=== PATIENT | female | born 1995 | race African-American/Black ===

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

== ENCOUNTER 2017-01-08 22:10 | Emergency (ER) | payer MEDICAID, OTHER ==
[~2017-01-08] VITALS: Ht 165.1 cm; Wt 95.5 kg
[~2017-01-08 22:10] MED LIST changes: +BACT800T5 PO; -ERYTOIN10 RIGHT EYE; -OSEL75 PO; -PERC5TAB12 PO
[2017-01-08 22:12] VITALS: BP 135/80; PULSE 67; RESP 16; TEMP 98.7; O2SAT 100
[2017-01-08] MEDS ORDERED: ELVITAB PO (23:34)
[2017-01-08] MEDS ORDERED: MULTTAB67 PO (23:34)
[2017-01-08] MEDS ORDERED: SODIUM CHLORIDE 0.9% FLUSH 10 ML FLUSH IV FLUSH PRN (23:45)
--- NOTE | 2017-01-08 23:47 | PD ---
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 Patient states she's been taking antiretrovirals and following up with her infectious disease officer as scheduled. She thinks that she might be currently. States that she did pass some blood and what appears to be some products of conception from her vagina earlier today. Currently she states that she feels fairly well. States never been before. Does not know her blood type. PFSH Past Medical History Autoimmune Disease: Yes (HIV) Cancer: No Cardiovascular Problems: No Diabetes: No Patient Takes Glucophage: No Diminished Hearing: No Endocrine: No Gastrointestinal Disorders: No Genitourinary: No Hepatitis: No Hiatal Hernia: No Hypertension: No Immune Disorder: No Musculoskeletal: Yes (S/P RIGHT ANKLE TRAUMA) Neurologic: No Psychiatric: No Reproductive: No Respiratory: No Immunizations Current: Yes Thyroid Disease: No Tetanus Vaccination: < 5 Years Influenza Vaccination: Yes ?: Unknown LMP: 11/26/16 Past Surgical History AICD: No Body Medical Devices: NONE Joint Replacement: No Pacemaker: No Other Surgery: No Social History Alcohol Use: No (DENIES) Tobacco Use: No (DENIES) Substance Use: No (DENIES) Allergies-Medications (Allergen,Severity, Reaction): Coded Allergies: No Known Allergies (Unverified , 01/08/17) Reported Meds & Prescriptions Reported Meds & Active Scripts Active Macrobid (Nitrofurantoin Monoh/Nitrofur Macro) 100 Mg Cap 100 Mg PO BID Reported Multiple Vitamin 1 Tab 1 Tab PO DAILY Stribild (Jmmhtdepwzln-Idrrzmxtff-Jivhpmnbpijh-Tenofvir) [id number] Mg Tab 1 Tab PO DAILY With food Review of Systems Except as stated in HPI: all other systems reviewed are Neg Physical Exam Narrative GENERAL: Well-developed well-nourished no obvious distress. SKIN: Focused skin assessment warm/dry. HEAD: Atraumatic. Normocephalic. EYES: Pupils equal and round. No scleral icterus. No injection or drainage. ENT: No nasal bleeding or discharge. Mucous membranes pink and moist. NECK: Trachea midline. No JVD. CARDIOVASCULAR: Regular rate and rhythm. No murmur appreciated. RESPIRATORY: No accessory muscle use. Clear to auscultation. Breath sounds equal bilaterally. GASTROINTESTINAL: Abdomen soft, non-tender, nondistended. Hepatic and splenic margins not palpable. GENITOURINARY: Small amount of blood in the vaginal vault, the patient's having some passage of membranous tissue from the cervix. No discharge no lesions seen. MUSCULOSKELETAL: No obvious deformities. No clubbing. No cyanosis. No edema. NEUROLOGICAL: Awake and alert. No obvious cranial nerve deficits. Motor grossly within normal limits. Normal speech. PSYCHIATRIC: Appropriate mood and affect; insight and judgment normal. Data Data Last Documented VS Vital Signs Date Time Temp Pulse Resp B/P (MAP) Pulse Ox O2 Delivery O2 Flow Rate FiO2 01/09/17 03:36 01/09/17 01:28 65 18 100 Room Air 01/08/17 22:12 98.7 Orders Orders Urinalysis - C+S If Indicated (01/08/17 23:23) Ed Urine Pregnancytest Poc (01/08/17 23:23) Basic Metabolic Panel (Bmp) (01/08/17 23:45) Beta Hcg (Quant/Titer) (01/08/17 23:45) Complete Blood Count With Diff (01/08/17 23:45) Iv Access Insert/Monitor (01/08/17 23:45) Ecg Monitoring (01/08/17 23:45) Oximetry (01/08/17 23:45) Sodium Chloride 0.9% Flush (Ns Flush) (01/08/17 23:45) Abo/Rh Blood Type (01/08/17 23:45) Urine Culture (01/09/17 01:40) Labs Laboratory Tests Test 01/09/17 00:23 01/09/17 01:40 01/09/17 02:40 White Blood Count 7.0 TH/MM3 Red Blood Count 4.10 MIL/MM3 Hemoglobin 12.1 GM/DL Hematocrit 36.8 % Mean Corpuscular Volume 89.9 FL Mean Corpuscular Hemoglobin 29.5 PG Mean Corpuscular Hemoglobin Concent 32.8 % Red Cell Distribution Width 13.6 % Platelet Count 230 TH/MM3 Mean Platelet Volume 8.3 FL Neutrophils (%) (Auto) 56.2 % Lymphocytes (%) (Auto) 32.6 % Monocytes (%) (Auto) 10.3 % Eosinophils (%) (Auto) 0.6 % Basophils (%) (Auto) 0.3 % Neutrophils # (Auto) 4.0 TH/MM3 Lymphocytes # (Auto) 2.3 TH/MM3 Monocytes # (Auto) 0.7 TH/MM3 Eosinophils # (Auto) 0.0 TH/MM3 Basophils # (Auto) 0.0 TH/MM3 CBC Comment DIFF FINAL Differential Comment Urine Color YELLOW Urine Turbidity HAZY Urine pH 7.0 Urine Specific [place] 1.023 Urine Protein TRACE mg/dL Urine Glucose (UA) NEG mg/dL Urine Ketones NEG mg/dL Urine Occult Blood LARGE Urine Nitrite NEG Urine Bilirubin NEG Urine Urobilinogen LESS THAN 2.0 MG/DL Urine Leukocyte Esterase LARGE Urine RBC /hpf Urine WBC 39 /hpf Urine Squamous Epithelial Cells 2 /hpf Urine Transitional Epithelial Cells <1 /hpf Urine Renal Epithelial Cells 1 /hpf Urine Mucus FEW /lpf Microscopic Urinalysis Comment CULTURE INDICATED Blood Urea Nitrogen 16 MG/DL Creatinine 0.78 MG/DL Random Glucose 75 MG/DL Calcium Level 8.5 MG/DL Sodium Level 138 MEQ/L Potassium Level 5.0 MEQ/L Chloride Level 105 MEQ/L Carbon Dioxide Level 29.1 MEQ/L Anion Gap 4 MEQ/L Estimat Glomerular Filtration Rate 115 ML/MIN Human Chorionic Gonadotropin, Quant 134 MIU/ML MDM Medical Decision Making Medical Screen Exam Complete: Yes Emergency Medical Condition: Yes Differential Diagnosis Miscarriage, Rh mismatch, early , vaginal bleeding and . Narrative Course Patient roomed in emergency department, given her symptoms, highly suspect that the patient is completed a spontaneous . Absent Quant and Rh, have asked my nurse practitioner Roya to follow-up these results program as necessary and the patient can return in 48 hours if needed for repeat Quant. At this time I do not see indication for ultrasound. If her hCG is high need to consider doing an ultrasound. Diagnosis Primary Impression: Spontaneous miscarriage Scripts Nitrofurantoin Monohydrate Macrocrystals (Macrobid) 100 Mg Cap 100 MG PO BID for Infection, #14 CAP 0 Refills Prov: Ashley Garzashannan PAULA 01/09/17 Disposition: 01 DISCHARGE HOME Condition: Stable Bull Monzon MD Jan 08, 2017 23:47
[2017-01-09 01:17] LABS: BASOPHIL % 0.3 % (0.0-2.0); EOSINOPHIL % 0.6 % (0.0-4.0); HEMATOCRIT 36.8 % (35.0-46.0); HEMO FLAGS DIFF FINAL; LYMPH % 32.6 % (9.0-44.0); LYMPHOCYTE # 2.3 TH/MM3 (1.0-4.8); MEAN CELL VOLUME 89.9 FL (80.0-100.0); MEAN CORPUSCULAR HEMOGLOBIN 29.5 PG (27.0-34.0); MEAN CORPUSCULAR HGB CONC 32.8 % (32.0-36.0); MONO % 10.3 % (0.0-8.0); NEUT % 56.2 % (16.0-70.0); PLATELET COUNT 230 TH/MM3 (150-450); RED CELL DISTRIBUTION WIDTH 13.6 % (11.6-17.2)
[2017-01-09 01:28] VITALS: BP 134/87; PULSE 65; RESP 18; O2SAT 100
[2017-01-09 02:11] LABS: BLOOD, URINE LARGE (NEG); GLUCOSE,URINE NEG (NEG); KETONE, URINE NEG (NEG); MUCUS URINE FEW /lpf (OCC); NITRITE,URINE NEG (NEG); RENAL EPITHELIAL CELLS 1 /hpf; SQUAMOUS EPITHELIAL CELL URINE 2 /hpf (0-5); TRANSITIONAL EPI CELLS, URINE <1 /hpf; URINE COLOR YELLOW (YELLW/STRAW)
[2017-01-09 02:14] LABS: COMMENT (UR) CULTURE INDICATED; CULTURE IF INDICATED CULTURE INDICATED
[2017-01-09] MEDS ORDERED: MACR100C2 PO (02:30)
--- NOTE | 2017-01-09 02:30 | PD ---
Physical Exam Date Seen by Provider: Jan 09, 2017 Time Seen by Provider: 02:24 Narrative For full history and physical examination please see previous provider's note. I assumed care of this patient from my attending physician at the end of his shift. At that time we were waiting on the results of her hCG level, urinalysis and chemistry. Data Data Last Documented VS Vital Signs Date Time Temp Pulse Resp B/P (MAP) Pulse Ox O2 Delivery O2 Flow Rate FiO2 01/09/17 01:28 65 18 134/87 (103) 100 Room Air 01/08/17 22:12 98.7 Orders Orders Urinalysis - C+S If Indicated (01/08/17 23:23) Ed Urine Pregnancytest Poc (01/08/17 23:23) Basic Metabolic Panel (Bmp) (01/08/17 23:45) Beta Hcg (Quant/Titer) (01/08/17 23:45) Complete Blood Count With Diff (01/08/17 23:45) Iv Access Insert/Monitor (01/08/17 23:45) Ecg Monitoring (01/08/17 23:45) Oximetry (01/08/17 23:45) Sodium Chloride 0.9% Flush (Ns Flush) (01/08/17 23:45) Abo/Rh Blood Type (01/08/17 23:45) Urine Culture (01/09/17 01:40) Labs Laboratory Tests Test 01/09/17 00:23 01/09/17 01:40 White Blood Count 7.0 TH/MM3 Red Blood Count 4.10 MIL/MM3 Hemoglobin 12.1 GM/DL Hematocrit 36.8 % Mean Corpuscular Volume 89.9 FL Mean Corpuscular Hemoglobin 29.5 PG Mean Corpuscular Hemoglobin Concent 32.8 % Red Cell Distribution Width 13.6 % Platelet Count 230 TH/MM3 Mean Platelet Volume 8.3 FL Neutrophils (%) (Auto) 56.2 % Lymphocytes (%) (Auto) 32.6 % Monocytes (%) (Auto) 10.3 % Eosinophils (%) (Auto) 0.6 % Basophils (%) (Auto) 0.3 % Neutrophils # (Auto) 4.0 TH/MM3 Lymphocytes # (Auto) 2.3 TH/MM3 Monocytes # (Auto) 0.7 TH/MM3 Eosinophils # (Auto) 0.0 TH/MM3 Basophils # (Auto) 0.0 TH/MM3 CBC Comment DIFF FINAL Differential Comment Human Chorionic Gonadotropin, Quant 134 MIU/ML Urine Color YELLOW Urine Turbidity HAZY Urine pH 7.0 Urine Specific [place] 1.023 Urine Protein TRACE mg/dL Urine Glucose (UA) NEG mg/dL Urine Ketones NEG mg/dL Urine Occult Blood LARGE Urine Nitrite NEG Urine Bilirubin NEG Urine Urobilinogen LESS THAN 2.0 MG/DL Urine Leukocyte Esterase LARGE Urine RBC /hpf Urine WBC 39 /hpf Urine Squamous Epithelial Cells 2 /hpf Urine Transitional Epithelial Cells <1 /hpf Urine Renal Epithelial Cells 1 /hpf Urine Mucus FEW /lpf Microscopic Urinalysis Comment CULTURE INDICATED MDM Medical Record Reviewed: Yes Supervised Visit with FABBY: Yes Interpretation(s) Laboratory Tests Test 01/09/17 00:23 01/09/17 01:40 White Blood Count 7.0 TH/MM3 Red Blood Count 4.10 MIL/MM3 Hemoglobin 12.1 GM/DL Hematocrit 36.8 % Mean Corpuscular Volume 89.9 FL Mean Corpuscular Hemoglobin 29.5 PG Mean Corpuscular Hemoglobin Concent 32.8 % Red Cell Distribution Width 13.6 % Platelet Count 230 TH/MM3 Mean Platelet Volume 8.3 FL Neutrophils (%) (Auto) 56.2 % Lymphocytes (%) (Auto) 32.6 % Monocytes (%) (Auto) 10.3 % Eosinophils (%) (Auto) 0.6 % Basophils (%) (Auto) 0.3 % Neutrophils # (Auto) 4.0 TH/MM3 Lymphocytes # (Auto) 2.3 TH/MM3 Monocytes # (Auto) 0.7 TH/MM3 Eosinophils # (Auto) 0.0 TH/MM3 Basophils # (Auto) 0.0 TH/MM3 CBC Comment DIFF FINAL Differential Comment Human Chorionic Gonadotropin, Quant 134 MIU/ML Urine Color YELLOW Urine Turbidity HAZY Urine pH 7.0 Urine Specific [place] 1.023 Urine Protein TRACE mg/dL Urine Glucose (UA) NEG mg/dL Urine Ketones NEG mg/dL Urine Occult Blood LARGE Urine Nitrite NEG Urine Bilirubin NEG Urine Urobilinogen LESS THAN 2.0 MG/DL Urine Leukocyte Esterase LARGE Urine RBC /hpf Urine WBC 39 /hpf Urine Squamous Epithelial Cells 2 /hpf Urine Transitional Epithelial Cells <1 /hpf Urine Renal Epithelial Cells 1 /hpf Urine Mucus FEW /lpf Microscopic Urinalysis Comment CULTURE INDICATED Vital Signs Date Time Temp Pulse Resp B/P (MAP) Pulse Ox O2 Delivery O2 Flow Rate FiO2 01/09/17 01:28 65 18 134/87 (103) 100 Room Air 01/08/17 22:12 98.7 67 16 135/80 (98) 100 Narrative Course HCG level is 134, we will forego ultrasound imaging at this time. Patient again was encouraged to return in 48 hours for repeat hCG level. Urinalysis with a large amount of occult blood, large leukocyte esterase, 39 white blood cells. Reflex culture pending. Patient will be treated with Keflex empirically Patient's Rh factor is positive, she does not require Rhogam at this time. Patient was encouraged to return to emergency department for any new or worsening symptoms. Again she was encouraged to return for repeat hCG testing in 48 hours. Patient should follow-up with MARKETING INSTRUCTOR. Patient verbalized understanding of these instructions. Patient stable for discharge. Diagnosis Primary Impression: Spontaneous miscarriage Additional Impression: Urinary tract infection Qualified Codes: N39.0 - Urinary tract infection, site not specified; R31.9 - Hematuria, unspecified Referrals: [facility] Patient Instructions: General Instructions, Miscarriage (ED) Additional Instruction: Follow-up with MARKETING INSTRUCTOR Return to emergency department in 48 hours for repeat hCG testing Returned to emergency department immediately for any new or worsening symptoms Complete full course of antibiotics as prescribed Med/Other Pt SpecificInfo: Prescription(s) given Scripts Nitrofurantoin Monohydrate Macrocrystals (Macrobid) 100 Mg Cap 100 MG PO BID for Infection, #14 CAP 0 Refills Prov: Roya Garza 01/09/17 Disposition: 01 DISCHARGE HOME Condition: Stable Roya Garza Jan 09, 2017 02:30
[2017-01-09 03:26] LABS: BICARBONATE 29.1 MEQ/L (21.0-32.0)
== END 2017-01-09 03:48 | disposition home or self-care (01) ==
LOC: NEPD 22:10
DX: O03.9 Complete or unspecified spontaneous abortion without complication (principal); O23.41 Unspecified infection of urinary tract in pregnancy, first trimester; O98.711 Human immunodeficiency virus [HIV] disease complicating pregnancy, first trimester; Z3A.01 Less than 8 weeks gestation of pregnancy; Z34.91 Encounter for supervision of normal pregnancy, unspecified, first trimester
CPT/HCPCS: 80048; 81001; 84702; 84703; 85025; 86900; 86901; 87086; 99284

== ENCOUNTER 2017-08-22 11:55 | Emergency (ER) | payer MEDICAID, OTHER ==
[~2017-08-22] VITALS: Ht 162.6 cm; Wt 100.0 kg
[~2017-08-22 11:55] MED LIST changes: -BACT800T5 PO; +ELVITAB PO; -IBUP800T23 PO; +MACR100C2 PO; +MULTTAB67 PO
[2017-08-22 12:13] VITALS: BP 159/71; PULSE 67; RESP 18; TEMP 98.6; O2SAT 100
[2017-08-22 14:15] LABS: AUTOMATED NEUTROPHIL # 3.2 TH/MM3 (1.8-7.7); BASOPHIL % 0.3 % (0.0-2.0); EOSINOPHIL % 0.5 % (0.0-4.0); HEMATOCRIT 38.8 % (35.0-46.0); HEMOGLOBIN 13.3 GM/DL (11.6-15.3); LYMPH % 29.1 % (9.0-44.0); LYMPHOCYTE # 1.5 TH/MM3 (1.0-4.8); MEAN CELL VOLUME 88.1 FL (80.0-100.0); MEAN CORPUSCULAR HEMOGLOBIN 30.2 PG (27.0-34.0); MEAN CORPUSCULAR HGB CONC 34.3 % (32.0-36.0); MEAN PLATELET VOLUME 8.5 FL (7.0-11.0); MONO % 9.5 % (0.0-8.0); MONOCYTE # 0.5 TH/MM3 (0-0.9); NEUT % 60.6 % (16.0-70.0); PLATELET COUNT 222 TH/MM3 (150-450); RED CELL DISTRIBUTION WIDTH 13.7 % (11.6-17.2); WHITE BLOOD COUNT 5.2 TH/MM3 (4.0-11.0)
--- NOTE | 2017-08-22 14:20 | PD ---
HPI Chief Complaint: GI Complaint Time Seen by Provider: 13:32 Travel History International Travel<30 days: No Contact w/Intl Traveler<30days: No Traveled to known affect area: No History of Present Illness HPI c/o 3 day h/o diarrhea, n/v and crampy abd pain. The crampy abdominal pain only occurs when patient is having a BM, which is watery, it is nonradiating as far as the pain is concerned it is crampy in nature, and about a 4 out of 10 in intensity. Patient patient denies any alleviating or aggravating factors. Patient also states that to her knowledge she does not have any sick contacts. denies nkda denies any surgery denies any medical hx PFSH Past Medical History Autoimmune Disease: Yes (HIV) Cancer: No Cardiovascular Problems: No Diabetes: No Diminished Hearing: No Endocrine: No Gastrointestinal Disorders: No Genitourinary: No Hepatitis: No Hiatal Hernia: No Hypertension: No Immune Disorder: No Musculoskeletal: Yes (S/P RIGHT ANKLE TRAUMA) Neurologic: No Psychiatric: No Reproductive: No Respiratory: No Immunizations Current: Yes Thyroid Disease: No ?: Unknown LMP: BEGINNING OF JULY Past Surgical History AICD: No Body Medical Devices: NONE Joint Replacement: No Pacemaker: No Other Surgery: No Social History Alcohol Use: No ( ) Tobacco Use: Yes Substance Use: Yes (MARIJUANA) Allergies-Medications (Allergen,Severity, Reaction): Coded Allergies: No Known Allergies (Unverified , 01/08/17) Reported Meds & Prescriptions Reported Meds & Active Scripts Active Zofran Odt (Ondansetron Odt) 4 Mg Tab 4 Mg SL Q8HR PRN Metrogel Vaginal Gel (Metronidazole Vaginal Gel) 0.75 % Gel 1 Appl VAGINAL HS 5 Days Macrobid (Nitrofurantoin Monoh/Nitrofur Macro) 100 Mg Cap 100 Mg PO BID 7 Days Macrobid (Nitrofurantoin Monoh/Nitrofur Macro) 100 Mg Cap 100 Mg PO BID Reported Multiple Vitamin 1 Tab 1 Tab PO DAILY Stribild (Rfnwtmmzzite-Hlkrhprolu-Vjfdeumwvdfb-Tenofvir) [id number] Mg Tab 1 Tab PO DAILY With food Review of Systems General / Constitutional: No: Fever Eyes: No: Visual changes HENT: No: Headaches Cardiovascular: No: Chest Pain or Discomfort Respiratory: No: Shortness of Breath Gastrointestinal: Positive: Nausea, Vomiting, Diarrhea Genitourinary: No: Dysuria Musculoskeletal: No: Pain Skin: No Rash Neurologic: No: Weakness Psychiatric: No: Depression Endocrine: No: Polydipsia Hematologic/Lymphatic: No: Easy Bruising Physical Exam Narrative GENERAL: SKIN: Warm and dry. HEAD: Atraumatic. Normocephalic. EYES: Pupils equal and round. No scleral icterus. No injection or drainage. ENT: No nasal bleeding or discharge. Mucous membranes pink and moist. NECK: Trachea midline. No JVD. CARDIOVASCULAR: Regular rate and rhythm. RESPIRATORY: No accessory muscle use. Clear to auscultation. Breath sounds equal bilaterally. GASTROINTESTINAL: Abdomen soft, non-tender, nondistended. MUSCULOSKELETAL: Extremities without clubbing, cyanosis, or edema. No obvious deformities. NEUROLOGICAL: Awake and alert. No obvious cranial nerve deficits. Motor grossly within normal limits. Five out of 5 muscle strength in the arms and legs. Normal speech. PSYCHIATRIC: Appropriate mood and affect; insight and judgment normal. Data Data Last Documented VS Vital Signs Date Time Temp Pulse Resp B/P (MAP) Pulse Ox O2 Delivery O2 Flow Rate FiO2 08/22/17 12:13 98.6 67 18 159/71 (100) 100 Orders Orders Complete Blood Count With Diff (08/22/17 12:20) Comprehensive Metabolic Panel (08/22/17 12:20) Urinalysis - C+S If Indicated (08/22/17 12:20) Lipase (08/22/17 12:20) Ed Urine Pregnancytest Poc (08/22/17 12:20) Urine Culture (08/22/17 12:25) Ondansetron Odt (Zofran Odt) (08/22/17 14:45) ^ Other Nursing Orders (08/22/17 14:32) Ed Discharge Order (08/22/17 16:22) Labs Laboratory Tests Test 08/22/17 12:25 White Blood Count 5.2 TH/MM3 Red Blood Count 4.40 MIL/MM3 Hemoglobin 13.3 GM/DL Hematocrit 38.8 % Mean Corpuscular Volume 88.1 FL Mean Corpuscular Hemoglobin 30.2 PG Mean Corpuscular Hemoglobin Concent 34.3 % Red Cell Distribution Width 13.7 % Platelet Count 222 TH/MM3 Mean Platelet Volume 8.5 FL Neutrophils (%) (Auto) 60.6 % Lymphocytes (%) (Auto) 29.1 % Monocytes (%) (Auto) 9.5 % Eosinophils (%) (Auto) 0.5 % Basophils (%) (Auto) 0.3 % Neutrophils # (Auto) 3.2 TH/MM3 Lymphocytes # (Auto) 1.5 TH/MM3 Monocytes # (Auto) 0.5 TH/MM3 Eosinophils # (Auto) 0.0 TH/MM3 Basophils # (Auto) 0.0 TH/MM3 CBC Comment DIFF FINAL Differential Comment Urine Color YELLOW Urine Turbidity HAZY Urine pH 6.5 Urine Specific [place] 1.024 Urine Protein TRACE mg/dL Urine Glucose (UA) NEG mg/dL Urine Ketones NEG mg/dL Urine Occult Blood NEG Urine Nitrite NEG Urine Bilirubin NEG Urine Urobilinogen LESS THAN 2.0 MG/DL Urine Leukocyte Esterase TRACE Urine RBC 3 /hpf Urine WBC 19 /hpf Urine Squamous Epithelial Cells 16 /hpf Urine Bacteria RARE /hpf Urine Mucus FEW /lpf Urine Trichomonas OCC Microscopic Urinalysis Comment CULTURE INDICATED Blood Urea Nitrogen 7 MG/DL Creatinine 0.76 MG/DL Random Glucose 80 MG/DL Total Protein 8.0 GM/DL Albumin 3.5 GM/DL Calcium Level 9.2 MG/DL Alkaline Phosphatase 51 U/L Aspartate Amino Transf (AST/SGOT) 15 U/L Alanine Aminotransferase (ALT/SGPT) 18 U/L Total Bilirubin 0.3 MG/DL Sodium Level 138 MEQ/L Potassium Level 3.5 MEQ/L Chloride Level 105 MEQ/L Carbon Dioxide Level 25.9 MEQ/L Anion Gap 7 MEQ/L Estimat Glomerular Filtration Rate 117 ML/MIN Lipase 97 U/L [facility] Medical Decision Making Medical Screen Exam Complete: Yes Emergency Medical Condition: Yes Medical Record Reviewed: Yes Differential Diagnosis Gastroenteritis versus pancreatitis versus hepatitis versus bacterial enteritis versus UTI versus incidental Narrative Course CBC shows no leukocytosis, no anemia, normal platelet count, no left shift liver and pancreatic enzymes are all within normal limits UA is significant for trichomonas, and also possibly for UTI patient was advised to see her hiv specialist, to evaluate if there is a need to change her ART due to . I have provided treatments that are safe during for uti and trichomonas. Diagnosis Primary Impression: Additional Impressions: UTI Trichomonas Patient Instructions: General Instructions, (DC), Trichomoniasis (ED) , Urinary Tract Infection in Women (DC) Scripts Ondansetron Odt (Zofran Odt) 4 Mg Tab 4 MG SL Q8HR Y for Nausea/Vomiting, #12 TAB 0 Refills Prov: Rishi Young MD 08/22/17 Metronidazole Vaginal Gel (Metrogel Vaginal Gel) 0.75 % Gel 1 APPL VAGINAL HS for Infection for 5 Days, #5 TUBE 0 Refills Prov: Rishi Young MD 08/22/17 Nitrofurantoin Monohydrate Macrocrystals (Macrobid) 100 Mg Cap 100 MG PO BID for Infection for 7 Days, #14 CAP 0 Refills Prov: Rishi Young MD 08/22/17 Disposition: 01 DISCHARGE HOME Condition: Stable Rishi Young MD Aug 22, 2017 14:19
[2017-08-22 14:27] LABS: BACTERIA, URINE RARE /hpf; BILIRUBIN, URINE NEG (NEG); BLOOD, URINE NEG (NEG); GLUCOSE,URINE NEG (NEG); KETONE, URINE NEG (NEG); MUCUS URINE FEW /lpf (OCC); NITRITE,URINE NEG (NEG); PH, URINE 6.5 (5.0-8.5); SQUAMOUS EPITHELIAL CELL URINE 16 /hpf (0-5); TRICHOMONAS, URINE OCC; URINE COLOR YELLOW (YELLW/STRAW); URINE LEUKOCYTE ESTERASE TRACE (NEG)
[2017-08-22 14:30] LABS: ALBUMIN 3.5 GM/DL (3.4-5.0); AST (GOT) 15 U/L (16-38); BICARBONATE 25.9 MEQ/L (21.0-32.0); BLOOD UREA NITROGEN 7 MG/DL (7-18); CALCIUM 9.2 MG/DL (8.5-10.1); CHLORIDE 105 MEQ/L (98-107); CREATININE 0.76 MG/DL (0.50-1.00); GLOMERULAR FILTRATION RATE 117 ML/MIN (>89); GLUCOSE,RANDOM 80 MG/DL (74-106); SODIUM (NA) 138 MEQ/L (136-145)
[2017-08-22 14:34] LABS: ALKALINE PHOSPHATASE 51 U/L (45-117); ALT (GPT) 18 U/L (9-42); TOTAL BILIRUBIN ADULT 0.3 MG/DL (0.2-1.0)
[2017-08-22] MEDS ORDERED: ONDANSETRON ODT 4 MG TAB PO ONE (14:45)
[2017-08-22] MEDS ORDERED: METR0.7528 VAGINAL (16:21)
[2017-08-22] MEDS ORDERED: MACR100C2 PO (16:21)
[2017-08-22] MEDS ORDERED: ZOFR4TAB3 SL (16:29)
== END 2017-08-22 16:42 | disposition home or self-care (01) ==
LOC: NEPD 11:55
DX: Z33.1 Pregnant state, incidental (principal); N39.0 Urinary tract infection, site not specified; A59.9 Trichomoniasis, unspecified; Z21 Asymptomatic human immunodeficiency virus [HIV] infection status; Z72.0 Tobacco use; Z79.899 Other long term (current) drug therapy
CPT/HCPCS: 80053; 81001; 83690; 84703; 85025; 87086; 99283

== ENCOUNTER 2017-09-10 11:46 | Emergency (ER) | payer OTHER, MEDICAID | END 2017-09-10 13:16 | disposition home or self-care (01) | LOC: NEPK 11:46 | DX: O26.891 Other specified pregnancy related conditions, first trimester (principal); Z3A.11 11 weeks gestation of pregnancy; J02.8 Acute pharyngitis due to other specified organisms; R09.81 Nasal congestion; H92.03 Otalgia, bilateral; O99.331 Smoking (tobacco) complicating pregnancy, first trimester; Z79.899 Other long term (current) drug therapy | CPT/HCPCS: 87081; 87880; 99283 ==